=== PATIENT | female | born 2000 | race Caucasian/White ===

== ENCOUNTER → 2021-05-15 13:23 | Outpatient (BNVA) | payer OTHER, SELFPAY | PROVIDERS: Visit Provider Nurse Practitioner Women's Health | DX: N92.6 Irregular menstruation, unspecified (principal) | CPT/HCPCS: 81025 ==

== ENCOUNTER → 2021-06-11 11:44 | Outpatient (BNVA) | payer OTHER, SELFPAY | PROVIDERS: Visit Provider Nurse Practitioner Women's Health | DX: Z34.90 Encounter for supervision of normal pregnancy, unspecified, unspecified trimester (principal) | CPT/HCPCS: 84315; 87086 ==

== ENCOUNTER → 2021-07-03 14:20 | Outpatient (BNVA) | payer OTHER, SELFPAY | PROVIDERS: Visit Provider Obstetrics & Gynecology | DX: O09.899 Supervision of other high risk pregnancies, unspecified trimester (principal); N89.8 Other specified noninflammatory disorders of vagina | CPT/HCPCS: 80307; 84315; 84443; 85025; 86592; 86762; 86803; 86850; 86900; 87086; 87340; 87481; 87491; 87512; 87591; 87661; 87798; 87799 ==

== ENCOUNTER → 2021-07-24 10:07 | Outpatient (BNVA) | payer OTHER, SELFPAY | PROVIDERS: Visit Provider Obstetrics & Gynecology | DX: O09.899 Supervision of other high risk pregnancies, unspecified trimester (principal) | CPT/HCPCS: 81511; 84156 ==

== ENCOUNTER → 2021-10-17 09:09 | Outpatient (BNVA) | payer OTHER, SELFPAY | PROVIDERS: Visit Provider Obstetrics & Gynecology | DX: O09.291 Supervision of pregnancy with other poor reproductive or obstetric history, first trimester (principal); O09.213 Supervision of pregnancy with history of pre-term labor, third trimester; Z87.59 Personal history of other complications of pregnancy, childbirth and the puerperium; Z86.59 Personal history of other mental and behavioral disorders | CPT/HCPCS: 82728; 82746; 82950; 83550; 84315; 84443; 85025 ==

== ENCOUNTER 2021-11-06 19:23 | Outpatient (CLI) | payer OTHER, SELFPAY ==
[2021-11-06] VITALS (9 sets, daily range): BP systolic 113–134; BP diastolic 70–85; PULSE 89–108; RESP 16; BMI 25.1
[2021-11-06] MEDS: dextrose 5%-lactated ringers 1,000 ML 999 ML IV (20:11)
[2021-11-06 20:19] LABS: Bilirubin Urine Neg (Negative); Blood Urine 3+ (Negative); Glucose Urine UA 1+ (Normal); Ketones Urine Negative (Negative); Leukocyte Esterase Urine 1+ (Negative); Nitrate Urine Negative (Negative); Protein Urine 1+ (Negative); RBC Urine TOO NUMEROUS TO CNT /hpf (0-2); Urine Appearance Hazy (CLEAR); Urine Color Yellow (Yellow); Urobilinogen Urine Norm (Negative); pH Urine 6 (5-7)
[2021-11-06 20:20] LABS: Add Urine Culture? Yes; Bacteria Urine 3+ /hpf; Calcium Oxalate Crystals Urine 0-4 /hpf; Mucus Urine 2+ /hpf; Squamous Epithelial Cell Urine 0-4 /hpf (0-5); WBC Urine 25-40 /hpf (0-5)
[2021-11-06] MEDS: sodium chloride 0.9% 1,000 ML 999 ML IV (21:15)
[2021-11-06] MEDS: cefTRIAXone 2,000 MG in sodium chloride 0.9% (plus) 50 ML 100 MG IV (21:16)
--- NOTE | 2021-11-08 11:12 | PC.NURSE ---
THIS CASING RUNNER CALLED SCRIPT INTO [facility] HERE IS [place] AT 0928, TALKED WITH LIBRADO. SCRIPT FOR KEFLEX 500MG PO BID FOR 10DAYS CALLED IN. THIS CASING RUNNER TRIED TO CALL PATIENT AROUND 0930, NO ANSWER AND UNABLE TO LEAVE A VOICEMAIL. THEN CALLED THEM BACK AT 1110 AND SPOKE WITH KRISTEN AND TOLD HER THAT SAM SAPP BE READY FOR THEM TO CHECK EXAMINER AND IF SHE HAD ANY PROBLEMS TO CALL AND LET ME KNOW.
== END 2021-11-06 22:45 | disposition home or self-care (01) ==
LOC: OPOB 19:35 → OBGYN 19:35
PROVIDERS: Visit Provider Obstetrics & Gynecology
DX: O26.899 Other specified pregnancy related conditions, unspecified trimester (principal); Z3A.00 Weeks of gestation of pregnancy not specified; R10.9 Unspecified abdominal pain
CPT/HCPCS: 59025; 81001; 87086; 99211; J0696; J7030

== ENCOUNTER → 2021-11-27 11:22 | Outpatient (BNVA) | payer OTHER, SELFPAY | PROVIDERS: Visit Provider Internal Medicine | DX: D53.9 Nutritional anemia, unspecified (principal); D50.9 Iron deficiency anemia, unspecified | CPT/HCPCS: 82607; 82746; 84315 ==

== ENCOUNTER 2021-11-29 20:03 | Outpatient (CLI) | payer OTHER, SELFPAY ==
[2021-11-29] VITALS (8 sets, daily range): BP systolic 115–131; BP diastolic 77–88; PULSE 90–103; TEMP 36.4–36.6; BMI 26.2
[2021-11-29 20:54] LABS: Bilirubin Urine Neg (Negative); Blood Urine Neg (Negative); Glucose Urine UA Norm (Normal); Ketones Urine Negative (Negative); Leukocyte Esterase Urine Trace (Negative); Nitrate Urine Negative (Negative); Protein Urine Neg (Negative); Urine Appearance Clear (CLEAR); Urine Color Yellow (Yellow); Urobilinogen Urine Norm (Negative); pH Urine 6 (5-7)
[2021-11-29 20:56] LABS: Add Urine Culture? No; Bacteria Urine 2+ /hpf; RBC Urine 0-4 /hpf (0-2); Squamous Epithelial Cell Urine 55-80 /hpf (0-5)
[2021-11-29 21:50] LABS: Actim Prom Negative
== END 2021-11-29 22:10 | disposition home or self-care (01) ==
LOC: OPOB 20:10 → OBGYN 20:12
PROVIDERS: Obstetrics & Gynecology; Visit Provider Obstetrics & Gynecology
DX: O26.899 Other specified pregnancy related conditions, unspecified trimester (principal); Z3A.00 Weeks of gestation of pregnancy not specified; N89.8 Other specified noninflammatory disorders of vagina
CPT/HCPCS: 81001; 83986; 84112; 99211

== ENCOUNTER → 2021-12-11 10:52 | Outpatient (BNVA) | payer OTHER, SELFPAY | PROVIDERS: Visit Provider Obstetrics & Gynecology | DX: O09.899 Supervision of other high risk pregnancies, unspecified trimester (principal); Z3A.00 Weeks of gestation of pregnancy not specified | CPT/HCPCS: 84315; 87081 ==

== ENCOUNTER 2021-12-13 11:55 | Outpatient (CLI) | payer OTHER, SELFPAY ==
[2021-12-13] VITALS (21 sets, daily range): BP systolic 106–120; BP diastolic 59–77; PULSE 87–113; TEMP 37.2; O2SAT 97–99; BMI 26.6
[2021-12-13] MEDS: terbutaline 1 mg/mL INJ 0.25 MG SUBCUT (13:16)
[2021-12-13] MEDS: lactated ringers 1,000 ML 125 ML IV (13:17)
[2021-12-13 13:55] LABS: Add Urine Microscopic? YES; Bilirubin Urine 1+ (Negative); Blood Urine Neg (Negative); Glucose Urine UA Norm (Normal); Ketones Urine 2+ (Negative); Leukocyte Esterase Urine 2+ (Negative); Nitrate Urine Negative (Negative); Protein Urine Neg (Negative); Urine Appearance Hazy (CLEAR); Urine Color Yellow (Yellow); Urobilinogen Urine 1 mg/dL (Negative); pH Urine 7 (5-7)
[2021-12-13 13:57] LABS: Mucus Urine 1+ /hpf; Squamous Epithelial Cell Urine 15-25 /hpf (0-5); WBC Urine 15-25 /hpf (0-5)
[2021-12-13 13:58] LABS: Add Urine Culture? No; Bacteria Urine 1+ /hpf
== END 2021-12-13 14:58 | disposition home or self-care (01) ==
LOC: OPOB 11:59 → OBGYN 12:02 → OPOB 12:59
PROVIDERS: Visit Provider Obstetrics & Gynecology
DX: O26.899 Other specified pregnancy related conditions, unspecified trimester (principal); Z3A.00 Weeks of gestation of pregnancy not specified; R10.9 Unspecified abdominal pain
CPT/HCPCS: 59025; 81001; 99211; J3105

== ENCOUNTER → 2021-12-17 13:38 | Outpatient (BNVA) | payer OTHER, SELFPAY | PROVIDERS: Visit Provider Obstetrics & Gynecology | DX: O09.899 Supervision of other high risk pregnancies, unspecified trimester (principal); Z3A.00 Weeks of gestation of pregnancy not specified | CPT/HCPCS: 84315; 85025 ==

== ENCOUNTER → 2021-12-24 08:47 | Day surgery (SDC) | payer OTHER, SELFPAY ==
[2021-12-24] MEDS: ferric carboxy (IVPB) 750 MG in sodium chloride 0.9% (100 ml) 100 ML 300 MG IV (09:10)
[2021-12-24 09:19] VITALS: BP 138/101; PULSE 97; RESP 18; TEMP 36.6; O2SAT 97
== END ==
LOC: GILAB 08:52
PROVIDERS: PCP Obstetrics & Gynecology; Visit Provider Internal Medicine
DX: D53.9 Nutritional anemia, unspecified (principal)
CPT/HCPCS: 96365; J1439

== ENCOUNTER → 2021-12-31 08:51 | Day surgery (SDC) | payer OTHER, SELFPAY ==
[2021-12-31] MEDS: ferric carboxy (IVPB) 750 MG in sodium chloride 0.9% (100 ml) 100 ML 345 MG IV (09:07)
[2021-12-31 09:10] VITALS: BP 147/97; PULSE 86; RESP 18; TEMP 36.4; O2SAT 97
== END ==
LOC: GILAB 08:52
PROVIDERS: PCP Obstetrics & Gynecology; Visit Provider Internal Medicine
DX: D53.9 Nutritional anemia, unspecified (principal)
CPT/HCPCS: 96365; J1439

== ENCOUNTER 2021-12-31 17:53 | Inpatient (IN) | payer OTHER, SELFPAY ==
[2021-12-31] VITALS (38 sets, daily range): BP systolic 131–198; BP diastolic 83–119; PULSE 76–118; RESP 15–16; TEMP 36.4–37.4; BMI 25.9
[2021-12-31 15:58] LABS: Basophils % 0.3 %; Eosinophils % 0.3 %; Hematocrit 25.3 % (37.0-47.0); Hemoglobin 8.3 g/dL (11.5-15.3); Lymphocytes # 1.3 10^3/uL (0.8-4.8); Lymphocytes % 16.4 %; Mean Corpuscular HGB Conc 32.8 g/dL (30.0-36.0); Mean Corpuscular Volume 91.3 fl (81-99); Mean Platelet Volume 13.3 fL (7.4-10.4); Monocytes # 0.4 10^3/uL (0.2-0.9); Monocytes % 5.2 %; Neutrophils # 6.05 10^3/uL (1.8-7.7); Neutrophils % 77.3 %; Nucleated Red Blood Cells % 0.3 %; Platelet Count 128 10^3/cmm (130-400); Red Blood Count 2.77 10^6/uL (4.1-5.3); Red Cell Distribution Width 17.4 % (12.1-15.1); White Blood Count 7.8 10^3/uL (4.0-10.0)
[2021-12-31 16:05] LABS: Add Urine Microscopic? YES; Bilirubin Urine Neg (Negative); Blood Urine 2+ (Negative); Glucose Urine UA Norm (Normal); Ketones Urine Negative (Negative); Nitrate Urine Negative (Negative); Protein Urine Neg (Negative); Specific Gravity, Urine 1.025 (1.005-1.030); Urine Color Yellow (Yellow); Urobilinogen Urine 1 mg/dL (Negative); pH Urine 6 (5-7)
[2021-12-31 16:07] LABS: Bacteria Urine 1+ /hpf; Leukocyte Esterase Urine 2+ (Negative); Squamous Epithelial Cell Urine 15-25 /hpf (0-5)
[2021-12-31 16:08] LABS: Add Urine Culture? Yes
[2021-12-31 16:21] LABS: Slide Review Slide Review Perform
[2021-12-31 17:21] LABS: Alanine Aminotransferase 9 U/L (0-33); Albumin Level 3.2 g/dL (3.5-5.2); Alkaline Phosphatase 121 IU/L (35-105); Anion Gap 13.4 (5-19); Aspartate Amino Transferase 14 U/L (0-32); Blood Urea Nitrogen 8 mg/dL (6-20); Calcium 8.9 mg/dL (8.5-10.5); Carbon Dioxide 22 mmol/L (22-29); Chloride 104 mmol/L (98-107); Globulin 2.6 g/dL (1.3-4.6); Glomerular Filtration Rate 152.9 mL/min (90-130); Glucose 104 mg/dL (65-115); Osmolality Calculated 281 mOsm/kg (285-295); Potassium 3.4 mmol/L (3.5-5.1); Sodium 136 mmol/L (136-145); Total Bilirubin 0.2 mg/dL (0.15-1.2); Total Protein 5.8 g/dL (6.6-8.7); Uric Acid 5.6 mg/dL (2.4-5.7)
[2021-12-31 17:31] LABS: UPRO/UCREAT Ratio 0.16 mg/mg CR; Urine Creatinine 308 mg/dL (28-217); Urine Protein Random 48 mg/dL
[2021-12-31] MEDS: dextrose 5%-lactated ringers 1,000 ML 125 ML IV (19:40)
[2021-12-31] MEDS: labetalol 5 mg/mL SDV 20mL 20 MG IVP (19:41)
[2021-12-31] MEDS: miSOPROStol 100 mcg tablet 25 MCG VAGINAL (20:20)
[2021-12-31] MEDS: labetalol 5 mg/mL SDV 20mL 40 MG IVP (21:56)
[2021-12-31] MEDS: magnesium sulfate premix 4 GM/100 ML PREMIX IV (23:21)
[2021-12-31] MEDS: magnesium sulfate premix 20 GM/500 ML BAG IV (23:41)
[2022-01-01] VITALS (184 sets, daily range): BP systolic 113–189; BP diastolic 57–113; PULSE 71–122; RESP 16–17; TEMP 36.6–37.4; O2SAT 92–99
--- NOTE | 2022-01-01 02:15 | PC.NURSE ---
Baby shampoo used for cleaning in place of betadine due to allergy
--- NOTE | 2022-01-01 04:40 | ANES.PREANE2 ---
Documented by User: Charlene Garcia CRNA 01/01/22 05:02 Pre-Anesthetic Assessment Height/Weight: Height 1.65 m Weight 70.76 kg Temp Pulse Resp BP Pulse Ox 99.3 F 100 16 147/98 97 12/31/21 23:48 01/01/22 04:56 12/31/21 23:07 01/01/22 04:53 01/01/22 04:56 Preop Diagnosis: IUP epidural Familial anesthetic complications: none Was Beta Kevin taken within 24 hours: N/A Was Clonidine taken within 24 hours: N/A Last intake: 1200 Social No alcohol and No tobacco Exam alert and oriented x 3 Airway Submandibular: within normal limits Cervical ROM: within normal limits Mallampati: Class I Dentition: full History/ROS No significant history except as noted CV/HEM Hypertension (gestational. currently on mag) GI Gastroesophageal Reflux Disease Neuropsych scoliosis- no problems with epidural placement Anesthetic Plan ASA status: 3 Anesthesia: Anesthesia Evaluation and Regional (specify below) (epidural) Risk of > 500 ml blood loss (7ml/kg in children): No Medications/Allergies Home Medications Medication Instructions Recorded Confirmed Last Taken Type PNV 153-FA 400 mcg-om3 35 mg-dha 1 tab PO DAILY 06/11/21 12/31/21 12/31/21 History 25 mg-epa 5 mg-fish oil chew tablet ( Gummies) Allergies Allergy/AdvReac Type Severity Reaction Status Date / Time shellfish derived Allergy Intermediate rash,swelli Verified 12/31/21 09:05 ng,itching Iodine and Iodide Containing Allergy ALGY-Hives Verified 12/31/21 09:05 Produc Current Medications Generic Name Dose Route Start Last Admin Trade Name Freq PRN Reason Stop Dose Admin Dextrose/Lactated Ringer's 1,000 mls @ 125 mls/hr 12/31/21 19:30 12/31/21 19:40 Dextrose 5%-Lactated Ringers IV 125 mls/hr .Q8H PRN Administration per label comments Magnesium Sulfate 20 gm in 500 mls @ 50 mls/hr 12/31/21 23:35 12/31/21 23:41 Magnesium Sulfate Premix IV 50 mls/hr .Q10H WILDA Administration Ropivacaine 200 mg in 100 mls @ 13 mls/hr 01/01/22 03:30 01/01/22 04:49 Naropin Premix EPIDURAL 13 mls/hr .Q7H42M WILDA Administration Labetalol HCl 20 mg 12/31/21 19:30 12/31/21 19:41 Labetalol 5 Mg/Ml Sdv 20ml IVP 20 mg PRN PRN Administration HYPERTENSION Protocol Labetalol HCl 40 mg 12/31/21 19:30 12/31/21 21:56 Labetalol 5 Mg/Ml Sdv 20ml IVP 40 mg PRN PRN Administration HYPERTENSION Protocol [facility] Anesthesia Medical History History of pre-eclampsia No pertinent past medical history neg dx- htn,dm, thyroid, dvt/pe PCP: none Surgical History No significant past surgical history Family History Mother Hypertension Grandfather Hypertension maternal Grandmother Hypertension maternal Denies family history of Colon cancer Ovarian cancer Diabetes Clotting disorder Breast cancer Bleeding disorder Uterine cancer Thyroid disease Stroke Female Reproductive History : 2 Data Anesthesia : 12/31/21 15:40 12/31/21 15:40 Short CBC 12/31/21 Range/Units 15:40 WBC 7.8 (4.0-10.0) 10^3/uL Hgb 8.3 L (11.5-15.3) g/dL Hct 25.3 L (37.0-47.0) % MCV 91.3 (81-99) fl Plt Count 128 L (130-400) 10^3/cmm Neut % (Auto) 77.3 % Neut # (Auto) 6.05 (1.8-7.7) 10^3/uL BMP 12/31/21 15:40 Sodium 136 Potassium 3.4 L Chloride 104 Carbon Dioxide 22 BUN 8 Creatinine 0.5 Glucose 104 Calcium 8.9 Liver Function 12/31/21 Range/Units 15:40 Total Bilirubin 0.2 (0.15-1.2) mg/dL AST 14 (0-32) U/L ALT 9 (0-33) U/L Alkaline Phosphatase 121 H (35-105) IU/L Albumin 3.2 L (3.5-5.2) g/dL Urine 12/31/21 Range/Units 15:30 Urine Color Yellow (Yellow) Urine Appearance Sl cloudy A (CLEAR) Urine pH 6 (5-7) Ur Specific [place] 1.025 (1.005-1.030) Urine Protein Neg (Negative) Urine Glucose (UA) Norm (Normal) Urine Ketones Negative (Negative) Urine Nitrate Negative (Negative) Urine Bilirubin Neg (Negative) Ur Leukocyte Esterase 2+ H (Negative) Urine RBC 10-15 H (0-2) /hpf Urine WBC 10-15 H (0-5) /hpf Blood Bank 12/31/21 14:10 Blood Type O Positive Rho(D) Type Positive Antibody Screen Negative Cardiac Studies: No Data to Display
--- NOTE | 2022-01-01 04:58 | P.ANES_ITS ---
Documented by User: Charlene Garcia CRNA 01/01/22 04:59 Anesthesia Procedures Procedure/Date: 01/01/22 epidural Epidural: Time Out Performed: Yes Consents Signed: Procedure Consent Con sent: from patient, risks and benefits reviewed and patient agrees to proceed Lumbar Level: L3-L4 Epidural position: sitting Epidural procedure: sterile prep of area, 1% lidocaine to numb the area, 18 g needle, negative for paresthesia passed, test dose given, 1.5% xylocaine 1:200k epi, placed PCEA, no systemic response, sterile dressing applied, L.U.D. no apparent complications and 0.2% Ropiavacaine @ mls/hr (13) Additional Comments: LOT at 4, taped at 12 at skin. neg blood, neg CSF return Documented by User: Raphael Dee DO 01/01/22 10:19 Anesthesia Procedures Procedure/Date: 01/01/22
[2022-01-01] MEDS: ondansetron 2 mg/ML SDV 2 mL 4 MG IVP (06:30)
[2022-01-01] MEDS: lactated ringers 1,000 ML 75 ML IV (08:16)
[2022-01-01] MEDS: magnesium sulfate premix 20 GM/500 ML BAG IV ×2 (08:17→14:50)
[2022-01-01] MEDS: oxytocin 30 UNIT/500 ML BAG IV (10:03)
--- NOTE | 2022-01-01 11:14 | PM.MISC ---
Miscellaneous Note Purpose of Documentation: C/O of hot spot on right side, bolused 100mcg fent and 5mls of 0.25% bup thru epidural.
[2022-01-01] MEDS: miSOPROStol 200 mcg Tablet 800 MCG PR (12:39)
--- NOTE | 2022-01-01 12:57 | PM.DELIVERY ---
Delivery Note: Date of delivery: January 01, 2022 Pre-delivery diagnoses: Term Post-delivery diagnoses: Term delivered Procedure: Spontaneous vaginal delivery Delivering Physician: Andrea Núñez MD Estimated blood loss (mL): 500 Delivery: The patient was noted to be complete and pushing, so was placed in the dorsal lithotomy position, prepped and draped in the usual sterile fashion for a vaginal delivery. Pt. Noted to have epidural anesthesia. At [time] the patient delivered a viable term female weighing [] g with scores of 8 and 9 at one and five minutes, respectively. The vertex was delivered spontaneously over intact perineum. The patient was asked to push and the head delivered spontaneously in the IQRA position, over an intact perineum. A nuchal cord was checked and none noted. The anterior shoulder delivered easily and the posterior shoulder followed. The remainder of the was easily delivered and the oropharynx and nasopharynx was bulb suctioned. The infant was noted to have spontaneous cry and spontaneous movement of all four extremities. The cord was clamped x 2 and cut and noted to have 2 arteries and one vein. The infant was passed to the mother's abdomen where nursing personnel were in attendance. Cord blood sample was then obtained. The placenta delivered intact spontaneously and the uterus was explored. 20 units of Pitocin was placed in the IV bag to firm the uterus. Examination of the cervix and vaginal vault did not reveal any lacerations. A vaginal pack was then placed. She had approximately 500 ml of blood loss treated with fundal massage,misoprostol and TXA Examination of the perineum showed no laceration. The vaginal pack was then removed. The patient tolerated this procedure well, and recovered in L&D with her infant in their LDR room. All sponge and needle counts were correct. History History History 2 Term 0 Miscarriages/Ectopic 0 1 Living Children 1 Coding Level of Care Code Acute Inspector Rag Sorting for Chg Madeline
--- NOTE | 2022-01-01 13:03 | ANE.PACU2 ---
Inpatient post-anesthesia follow up: Airway intact: Yes Vital signs: Temperature 97.9 F Pulse Rate 101 Respiratory Rate 17 Blood Pressure 148/92 Pulse Oximetry 98 Oxygen Delivery Me thod Room Air Oxygen Flow Rate Fraction of Inspir ed Oxygen Hydration adequate: Yes Nausea and vomiting: No Pain level: 2 Mental status: Baseline
[2022-01-01 13:29] LABS: Magnesium Level (OB Only) 5.5 mg/dL (5.0-7.5)
[2022-01-01] MEDS: labetalol 5 mg/mL SDV 20mL 40 MG IVP ×2 (13:37→15:24)
[2022-01-01] MEDS: lanolin oint 7 gm 1 APPLIC TOPICAL (14:50)
[2022-01-01] MEDS: benzocaine-menthol 78 gm Canister 1 SPRAY TOPICAL (14:50)
[2022-01-01] MEDS: ibuprofen 800 mg tablet PO ×2 (14:51→21:48)
[2022-01-01] MEDS: labetalol 200 mg Tablet 100 MG PO (16:26)
[2022-01-01 19:34] LABS: Magnesium Level (OB Only) 5.5 mg/dL (5.0-7.5)
[2022-01-01] MEDS: dextrose 5%-lactated ringers 1,000 ML 75 ML IV (22:16)
[2022-01-02] VITALS (24 sets, daily range): BP systolic 131–149; BP diastolic 81–105; PULSE 78–96; RESP 16; TEMP 25.6–37.5; O2SAT 96
[2022-01-02] MEDS: magnesium sulfate premix 20 GM/500 ML BAG IV ×2 (00:01→09:50)
[2022-01-02 01:32] LABS: Magnesium Level (OB Only) 5.2 mg/dL (5.0-7.5)
[2022-01-02 01:34] LABS: Hematocrit 25.8 % (37.0-47.0); Hemoglobin 8.2 g/dL (11.5-15.3); Mean Corpuscular HGB Conc 31.8 g/dL (30.0-36.0); Mean Corpuscular Hemoglobin 29.7 pg (28.0-34.0); Mean Corpuscular Volume 93.5 fl (81-99); Mean Platelet Volume 13.7 fL (7.4-10.4); Platelet Count 126 10^3/cmm (130-400); Red Blood Count 2.76 10^6/uL (4.1-5.3); Red Cell Distribution Width 18.6 % (12.1-15.1); White Blood Count 10.8 10^3/uL (4.0-10.0)
[2022-01-02] MEDS: labetalol 200 mg Tablet 100 MG PO ×2 (05:25→19:11)
[2022-01-02 06:01] LABS: Magnesium Level (OB Only) 5.4 mg/dL (5.0-7.5)
[2022-01-02] MEDS: prenatal vitamin Capsule 1 CAP PO (08:23)
[2022-01-02] MEDS: ibuprofen 800 mg tablet PO ×3 (08:23→23:21)
[2022-01-02] MEDS: docusate sodium 100 mg Capsule PO ×2 (08:23→19:11)
[2022-01-02] MEDS: dextrose 5%-lactated ringers 1,000 ML 75 ML IV (09:50)
--- NOTE | 2022-01-02 13:26 | PC.NURSE ---
bhumi care performed. chux/pad changed. ice pack given
--- NOTE | 2022-01-02 16:56 | P.PN_ITS ---
Subjective Subjective: S/P spontaneous vaginal delivery day. complicated by preeclampsia Vitals/I&O/Wt Last Vital Signs Temp 99.5 F 01/02/22 16:30 Pulse 89 01/02/22 16:41 Resp 16 01/01/22 13:59 BP 146/97 01/02/22 16:41 Pulse Ox 96 01/02/22 15:51 01/02/22 01/02/22 01/02/22 06:59 14:59 22:59 Intake Total 459.167 / 2388.000 2158.333 / 2158.333 Output Total 1950 / 5735 2250 / 2250 Balance -1490.833 / -3347.000 -91.667 / -91.667 Physical Exam Narrative: GA; alert and oriented x 3 HEENT: normal Breasts: engorged Nipples - skin intact Lungs; clear to auscultation Heart: regular rhythm, no murmurs. Abd: Appropriately tender. BS+. Uterine fundus below umbilicus. No Fundal Tend erness. Perineum: normal lochia. Extremities: no edema, no cyanosis, no tenderness. Urinary Catheter Management: Zhang Latex Free: Cath Placed During This Visit: yes, but has since been removed by the nurse Reason for Continuing Indwelling Catheter: Decision to DC Catheter Urinary Catheter Date of Insertion: 01/01/22 Urinary Catheter Time of Insertion: 13:00 Date Urinary Catheter Removed: 01/02/22 Time Urinary Catheter Discontinued: 13:00 Data : 01/02/22 01:13 12/31/21 15:40 Micro: Microbiology 12/31/21 15:30 Urine Culture - Final Urine,Clean Catch A&P Assessment and plan (1) Pre-eclampsia, delivered: Mrs. B[place]na S/P spontaneous vaginal delivery day1. Afebrile and hemodynamically stable. MgSO4 discontinue after diauresis. Status: Acute Plan Continue observation Attestations Medical Necessity Statement*: In my professional opinion per admitting jammie freeman Coding Level of Care Code Acute Mental Health Coordinator for Amayag Fwd Diagnoses Pre-eclampsia, delivered O14.94
--- NOTE | 2022-01-02 18:59 | PC.NURSE ---
pt up to bathroom without difficulty. small void. bhumi care performed. gown and pad changed. bed linens changed.
[2022-01-03 03:39] VITALS: BP 123/70; PULSE 79; RESP 16; TEMP 36.7; O2SAT 95
[2022-01-03] MEDS: labetalol 200 mg Tablet 100 MG PO ×3 (06:15→20:56)
[2022-01-03] MEDS: docusate sodium 100 mg Capsule PO ×2 (08:27→16:17)
[2022-01-03] MEDS: prenatal vitamin Capsule 1 CAP PO (08:27)
[2022-01-03] MEDS: ibuprofen 800 mg tablet PO ×3 (08:27→20:56)
[2022-01-03 09:36] VITALS: BP 147/99; PULSE 90; RESP 18; TEMP 36.8; O2SAT 97
--- NOTE | 2022-01-03 11:37 | P.DS_ITS ---
Discharge Providers Date of Admission: 12/31/21 17:53 Date of Discharge: January 03, 2022 Attending Provider at Admission: Maday Maldonado MD Attending Provider at Discharge: Maday Maldonado MD Primary Care Provider: Maday Maldonado MD Diagnoses at Discharge Discharge Diagnosis (1) Pre-eclampsia, delivered: Status: Acute Reason for Visit Reason for Visit: elevated blood pressure Hospital Course Hospital Course The patient was admitted for induction of labor for severe level blood pressures. She had spontaneous delivery of a term . She had magnesium sulfate continued for 24 hours post . She had good diuresis. Blood pressures were still elevated and labetalol 100 mg bid was started. Physical Exam Narrative: The patient has no concerns today Const: COMMON NORMALS: no acute distress, average body habitus, patient oriented x3, healthy appearing, alert and well nourished GENERAL APPEARANCE: cooperative, well kempt and well developed ORIENTATION/CONSCIOUSNESS: Yes awake, Yes oriented to person, Yes oriented to place and Yes oriented to time Resp: COMMON NORMALS: normal respiratory effort EFFORT & INSPECTION: Yes able to speak in complete sentences GI: COMMON NORMALS: Soft to palpation and non-tender PALPATION: Yes Soft to palpation Extremity: COMMON NORMALS: no calf tenderness Neuro: COMMON NORMALS: patient oriented x3 SENSORIUM/ORIENTATION: Yes alert, Yes oriented to person, Yes oriented to place and Yes oriented to time Psych: APPEARANCE: Yes well kempt Urinary Catheter Management: Zhang Latex Free: Cath Placed During This Visit: yes, but has since been removed by the nurse Reason for Continuing Indwelling Catheter: Decision to DC Catheter Urinary Catheter Date of Insertion: 01/01/22 Urinary Catheter Time of Insertion: 13:00 Date Urinary Catheter Removed: 01/02/22 Time Urinary Catheter Discontinued: 13:00 Discharge Data Studies Completed and Pending Laboratory Results WBC 10.8 10^3/uL (4.0-10.0) H 01/02/22 01:13 RBC 2.76 10^6/uL (4.1-5.3) L 01/02/22 01:13 Hgb 8.2 g/dL (11.5-15.3) L 01/02/22 01:13 Hct 25.8 % (37.0-47.0) L 01/02/22 01:13 MCV 93.5 fl (81-99) 01/02/22 01:13 MCH 29.7 pg (28.0-34.0) 01/02/22 01:13 MCHC 31.8 g/dL (30.0-36.0) 01/02/22 01:13 RDW 18.6 % (12.1-15.1) H 01/02/22 01:13 Plt Count 126 10^3/cmm (130-400) L 01/02/22 01:13 MPV 13.7 fL (7.4-10.4) H 01/02/22 01:13 Neut % (Auto) 77.3 % 12/31/21 15:40 Lymph % (Auto) 16.4 % 12/31/21 15:40 [place] % (Auto) 5.2 % 12/31/21 15:40 Eos % (Auto) 0.3 % 12/31/21 15:40 Baso % (Auto) 0.3 % 12/31/21 15:40 Neut # (Auto) 6.05 10^3/uL (1.8-7.7) 12/31/21 15:40 Lymph # (Auto) 1.3 10^3/uL (0.8-4.8) 12/31/21 15:40 [place] # (Auto) 0.4 10^3/uL (0.2-0.9) 12/31/21 15:40 Eos # (Auto) 0.0 10^3/uL (0.0-0.8) 12/31/21 15:40 Baso # (Auto) 0.0 10^3/uL (0.0-0.1) 12/31/21 15:40 Nucleated RBC % (auto) 0.3 % 12/31/21 15:40 Nucleated RBCs # 0.0 /100WBC 12/31/21 15:40 Sodium 136 mmol/L (136-145) 12/31/21 15:40 Potassium 3.4 mmol/L (3.5-5.1) L 12/31/21 15:40 Chloride 104 mmol/L (98-107) 12/31/21 15:40 Carbon Dioxide 22 mmol/L (22-29) 12/31/21 15:40 Anion Gap 13.4 (5-19) 12/31/21 15:40 BUN 8 mg/dL (6-20) 12/31/21 15:40 Creatinine 0.5 mg/dL (0.5-0.9) 12/31/21 15:40 GFR Calculation 152.9 mL/min (90-130) H 12/31/21 15:40 Glucose 104 mg/dL (65-115) 12/31/21 15:40 Calculated Osmolality 281 mOsm/kg (285-295) L 12/31/21 15:40 Uric Acid 5.6 mg/dL (2.4-5.7) 12/31/21 15:40 Calcium 8.9 mg/dL (8.5-10.5) 12/31/21 15:40 Magnesium 5.4 mg/dL (5.0-7.5) 01/02/22 05:30 Total Bilirubin 0.2 mg/dL (0.15-1.2) 12/31/21 15:40 AST 14 U/L (0-32) 12/31/21 15:40 ALT 9 U/L (0-33) 12/31/21 15:40 Alkaline Phosphatase 121 IU/L (35-105) H 12/31/21 15:40 Total Protein 5.8 g/dL (6.6-8.7) L 12/31/21 15:40 Albumin 3.2 g/dL (3.5-5.2) L 12/31/21 15:40 Globulin 2.6 g/dL (1.3-4.6) 12/31/21 15:40 Urine Color Yellow (Yellow) 12/31/21 15:30 Urine Appearance Sl cloudy (CLEAR) A 12/31/21 15:30 Urine pH 6 (5-7) 12/31/21 15:30 Ur Specific [place] 1.025 (1.005-1.030) 12/31/21 15:30 Urine Protein Neg (Negative) 12/31/21 15:30 Urine Glucose (UA) Norm (Normal) 12/31/21 15:30 Urine Ketones Negative (Negative) 12/31/21 15:30 Urine Blood 2+ (Negative) H 12/31/21 15:30 Urine Nitrate Negative (Negative) 12/31/21 15:30 Urine Bilirubin Neg (Negative) 12/31/21 15:30 Urine Urobilinogen 1 mg/dL (Negative) H 12/31/21 15:30 Ur Leukocyte Esterase 2+ (Negative) H 12/31/21 15:30 Urine RBC 10-15 /hpf (0-2) H 12/31/21 15:30 Urine WBC 10-15 /hpf (0-5) H 12/31/21 15:30 Ur Squamous Epith Cells 15-25 /hpf (0-5) H 12/31/21 15:30 Amorphous Sediment Not Reportable 12/31/21 15:30 Urine Bacteria 1+ /hpf (NONE) H 12/31/21 15:30 U Random Total Protein 48 mg/dL 12/31/21 15:30 Urine Creatinine 308 mg/dL (28-217) H 12/31/21 15:30 Protein/Creatinin Ratio 0.16 mg/mg CR 12/31/21 15:30 Blood Type O Positive 12/31/21 14:10 Rho(D) Type Positive 12/31/21 14:10 Antibody Screen Negative 12/31/21 14:10 Vitals Last Vital Signs Temp 98.3 F 01/03/22 09:36 Pulse 90 01/03/22 09:36 Resp 18 01/03/22 09:36 BP 147/99 01/03/22 09:36 Pulse Ox 97 01/03/22 09:36 Discharge Plan Discharge Patient Disposition: Home Condition: Stable Prescriptions: New labetalol 200 mg Tablet 100 mg PO Q12H Qty: 60 2RF Continued Gummies 400 mcg-35 mg- 25 mg-5 mg tablet,chewable 1 tab PO DAILY 0RF Discharge Orders: Discharge Order (Routine); Ordered 01/03/22 Ordered By: Maday Maldonado Patient Instructions: Depression (DC), Bleeding (DC), Preeclampsia and Eclampsia After Delivery (GEN), OB Discharge Report, OB Food/D rug Interaction Guide, OB Care at Home, Opioid Safety, OB Home Care, OB Vaginal Deliveries - [facility], Abnormal Bleeding Discharge Attestations Time Spent in Discharge Care*: less than 30 min Quality Metrics Clinical Quality Measures [ No reported AMI, CVA or VTE this stay] Coding Level of Care Code Acute Chg FW DC note Diagnoses Pre-eclampsia, delivered O14.94
[2022-01-03 16:11] VITALS: BP 148/100; PULSE 90; RESP 16; TEMP 36.9; O2SAT 96
[2022-01-03 21:40] VITALS: BP 163/105; PULSE 78; RESP 16; TEMP 36.8; O2SAT 98
== END 2022-01-03 21:45 | disposition home or self-care (01) | DRG 807 ==
LOC: OPOB 17:53 → OBGYN 17:57
PROVIDERS: Obstetrics & Gynecology; Admitting Provider Obstetrics & Gynecology; PCP Obstetrics & Gynecology; Visit Provider Obstetrics & Gynecology
DX: O14.94 Unspecified pre-eclampsia, complicating childbirth (principal); Z37.0 Single live birth; O99.02 Anemia complicating childbirth; D50.9 Iron deficiency anemia, unspecified; Z3A.39 39 weeks gestation of pregnancy
CPT/HCPCS: 36415; 51702; 59025; 59409; 80053; 81001; 82570; 83735; 84156; 84550; 85025; 85027; 86850; 86900; 87086; 99211; J2405; J2795; J3010; J3475; J3490

== ENCOUNTER 2022-11-15 21:03 | Emergency (ER) | payer OTHER, SELFPAY ==
[2022-11-15 21:11] VITALS: BP 112/72; PULSE 102; RESP 16; TEMP 36.8; O2SAT 97; BMI 21.4
--- NOTE | 2022-11-15 22:34 | ED_ITS ---
HPI - Animal Bite General: Chief Complaint: Animal Bite Stated Complaint: bilateral spider bite to feet Time Seen by Provider: 11/15/22 21:56 Source: patient Mode of arrival: ambulatory Limitations: no limitations History of Present Illness: Patient presents emergency department today for evaluation treatment of bilateral foot redness and concern for spider bites. Patient states that several days ago she had an area of redness and a pustule develop on the distal dorsal aspect of her right foot. She states the redness has continued to spread but, the pustule has ruptured and scabbed over. Patient states she noticed today that she has redness and 3 small pustules in the same area on her left foot. She denies feeling any bites or stings but, states they were visiting some family out of town and they killed brown recluse spiders in the room they were staying in. Patient's also has something similar. Patient states she comes in due to the spreading redness, tenderness, and pain she has while standing. She has not had any fevers. Review of Systems General: Reports: 10 or more systems reviewed and unremarkable except in HPI and below PFSH ED PFSH: Medical History History of pre-eclampsia No pertinent past medical history neg dx- htn,dm, thyroid, dvt/pe PCP: none Surgical History No significant past surgical history Family History Mother Hypertension Grandfather Hypertension maternal Grandmother Hypertension maternal Denies family history of Colon cancer Ovarian cancer Diabetes Clotting disorder Breast cancer Bleeding disorder Uterine cancer Thyroid disease Stroke Physical Exam Const: COMMON NORMALS: no acute distress, patient oriented x3 and alert HENMT: COMMON NORMALS: normocephalic, atraumatic and hearing grossly normal bilaterally HEAD & SCALP: normocephalic and atraumatic Eye: COMMON NORMALS: Equal, round and reactive pupils present, EOMs intact bilaterally and conjunctivae normal CONJUNCTIVA: Yes conjunctivae normal PUPIL: Yes Equal, round and reactive pupils present Neck/C-Spine: COMMON NORMALS: full ROM and no JVD Lymph: LYMPHATIC: no lymphadenopathy noted Resp: COMMON NORMALS: normal respiratory effort, No retractions and No use of accessory muscles Cardio: COMMON NORMALS: no JVD and regular rate RATE: regular rate Neuro: COMMON NORMALS: patient oriented x3 SENSORIUM/ORIENTATION: Yes alert Psych: COMMON NORMALS: mental status grossly normal, Normal thought process present, cooperative and normal affect THOUGHT PROCESS: Normal thought process present Skin: COMMON NORMALS: no rashes or lesions noted and turgor normal NARRATIVE SKIN EXAM: Patient has diffuse erythema noted to the dorsal aspects of the mid and distal forefoot on the right and left feet. Patient has a dried scab approximately 0.5 cm in size on the right foot overlying the area of erythema. There is no fluctuance or active draining. Patient's left foot has 3 active pustules overlying the area of erythema. Each are approximately the size of the head of a pin. Patient also has a red streak starting to develop on the medial aspect of the foot extending up towards the ankle. GENERAL SKIN EXAM: no rashes or lesions noted and turgor normal Course Vital Signs: Vital signs: Vital Signs Temperature 98.2 F 11/15/22 21:11 Pulse Rate 102 H 11/15/22 21:11 Respiratory Rate 16 11/15/22 21:11 Blood Pressure 112/72 11/15/22 21:11 Pulse Oximetry 97 11/15/22 21:11 Oxygen Delivery Me thod Room Air 11/15/22 21:11 MDM - Animal Bite Medical Decision Making ThisPatient presents to the emergency department today for evaluation treatment of bilateral and development of pustules. She is concerned for spider bites. We did discuss brown recluse bites and the possibility of development of eschar ulcerations. However, we also discussed the development of cellulitis which I do believe the patient is dealing with today. Patient was started on doxycycline here through the emergency department tonight. Patient's feet were treated with mupirocin and bandaging. She was given return precautions for any change or worsening in her condition for which she needs to be seen and reevaluated. Patient verbalized understanding and agreement to treatment plan. Discharge Plan Discharge Patient Disposition: Home Clinical Impression: Cellulitis of both feet Condition: Stable Prescriptions: New doxycycline hyclate 100 mg capsule 100 mg PO BID 7 Days Qty: 14 0RF No Action Gummies 400 mcg-35 mg- 25 mg-5 mg tablet,chewable 1 tab PO DAILY labetalol 200 mg Tablet 100 mg PO Q12H Qty: 60 2RF Discharge Orders: Discharge ED (Routine); Ordered 11/15/22 Ordered By: Heidi Sanabria Discharge Diet: Usual diet Discharge Activity: Increase activity as tolerated Patient Instructions: Cellulitis (ED), Brown Recluse Spider Bite (ED) Activity Restrictions/Additional Instructions: Examination today is suspicious for a brown recluse. Typically, being bitten by a brown recluse does not hurt and most people do not realize they have been bitten until there are changes to the skin. Brown recluse do have venom and can cause localized skin necrosis-resulting in an ulcerated, black scab. Unfortunately, there is not much to be done about this side effect but, we do n ot recommend picking or removing the scab. The spider bites also spread bacterial infection in the skin resulting in redness, swelling, and tenderness around the bite sites. We are starting you on antibiotics to help treat this skin infection. Have also provided you some topical medicine you can apply to the areas of pustules as I do recommend you keep them covered with bandaging until they are healed. Continue to watch for any spreading redness on the feet, continued red streaking up the leg, new development of fever, or severe foot swelling. If these agree should be seen and reevaluated again. Coding Level of Care Code ED [employer] Gun[employer] Liaison Officer for Ramirez Correa
[2022-11-15] MEDS: mupirocin oint 22 gm 1 APPLIC TOPICAL (22:41)
[2022-11-15] MEDS: doxycycline 100 mg Tablet PO (22:41)
[2022-11-15 22:49] VITALS: BP 105/75; PULSE 101; RESP 16; O2SAT 97
--- NOTE | 2022-11-26 13:09 | DCPLANNER ---
clinical research manager was triggered to call patient due to no primary care physician - patient sees Dr. Cleveland at [facility].
== END 2022-11-15 22:52 | disposition home or self-care (01) ==
PROVIDERS: Emergency Provider Physician Assistant; PCP Family Medicine
DX: L03.115 Cellulitis of right lower limb (principal); L03.116 Cellulitis of left lower limb
CPT/HCPCS: 99283

== ENCOUNTER → 2022-11-18 10:44 | Outpatient (BNVA) | payer OTHER, SELFPAY | PROVIDERS: PCP Family Medicine; Visit Provider Family Medicine | DX: D50.9 Iron deficiency anemia, unspecified (principal); F32.0 Major depressive disorder, single episode, mild | CPT/HCPCS: 80053; 82728; 83550; 84439; 84443; 85025 ==

== ENCOUNTER → 2023-10-19 08:32 | Outpatient (BNVA) | payer OTHER, SELFPAY | PROVIDERS: Visit Provider Nurse Practitioner Family | DX: R68.89 Other general symptoms and signs (principal); J06.9 Acute upper respiratory infection, unspecified | CPT/HCPCS: 87400 ==

== ENCOUNTER → 2023-11-02 15:37 | Outpatient (BNVA) | payer OTHER, SELFPAY | PROVIDERS: Visit Provider Orthopaedic Surgery | DX: M54.9 Dorsalgia, unspecified (principal); M54.42 Lumbago with sciatica, left side | CPT/HCPCS: 72110 ==

== ENCOUNTER 2023-11-21 08:40 | Outpatient (CLI) | payer OTHER, SELFPAY ==
[2023-11-22 15:33] LABS: Hepatitis B Surface Antigen Non-Reactive (Nonreactive)
[2023-11-22 15:35] LABS: Hepatitis B Surface AB < 3.5 (11.5-1000); Hepatitis C Virus Antibody Non-Reactive (Nonreactive)
[2023-11-22 15:36] LABS: HIV 1 & 2 Antibody Non-Reactive (Non-Reactiv); HIV 1 & 2 Antigen Non-Reactive (Non-Reactiv)
== END 2023-11-21 08:41 | disposition home or self-care (01) ==
PROVIDERS: Visit Provider Family Medicine
DX: Z01.89 Encounter for other specified special examinations (principal); W46.0XXA Contact with hypodermic needle, initial encounter
CPT/HCPCS: 86706; 86803; 87340; 87806

== ENCOUNTER → 2024-02-25 12:04 | Outpatient (BNVA) | payer OTHER, SELFPAY | PROVIDERS: PCP Family Medicine; Visit Provider Emergency Medicine | DX: Z20.822 Contact with and (suspected) exposure to COVID-19 (principal) | CPT/HCPCS: 87426 ==

== ENCOUNTER → 2025-03-15 11:50 | Outpatient (BNVA) | payer OTHER, SELFPAY | PROVIDERS: PCP Family Medicine; Visit Provider Family Medicine | DX: D50.9 Iron deficiency anemia, unspecified (principal) | CPT/HCPCS: 80053; 80061; 82728; 83550; 84439; 84443; 85025 ==

== ENCOUNTER → 2025-04-09 16:03 | Outpatient (BNVA) | payer OTHER, SELFPAY | PROVIDERS: PCP Family Medicine; Visit Provider Registered Nurse Neonatal Intensive Care | DX: R30.0 Dysuria (principal); R39.9 Unspecified symptoms and signs involving the genitourinary system | CPT/HCPCS: 81000; 87086; 87491; 87591; 87661 ==

== ENCOUNTER → 2025-05-02 15:08 | Outpatient (BNVA) | payer OTHER, SELFPAY | PROVIDERS: PCP Family Medicine | DX: R30.0 Dysuria (principal); R39.0 Extravasation of urine | CPT/HCPCS: 81000; 87086 ==